=== PATIENT | female | born 1970 | race Two or more races ===

== ENCOUNTER 2016-11-22 19:22 | Emergency (ER) | payer SELFPAY ==
[~2016-11-22] VITALS: Ht 167.6 cm; Wt 748.4 kg
[2016-11-22 19:35] VITALS: BP 112/65
--- NOTE | 2016-11-22 21:08 | NUR ---
CALLED X4; NOT IN LOBBY. INFORMED PT LEFT.
== END 2016-11-22 21:09 | disposition left against medical advice (07) ==
LOC: ER 19:26
DX: Z53.21 Procedure and treatment not carried out due to patient leaving prior to being seen by health care provider (principal)
CPT/HCPCS: A4606; Z7610